=== PATIENT | female | born 1955 | race Caucasian/White ===

== ENCOUNTER → 2017-01-01 | Outpatient (CLI) | payer BC ==
[~2017-01-01] MED LIST: BENA20TA2 PO
== END | disposition home or self-care (01) ==
LOC: CFH 10:45
PROVIDERS: ATTEND Nurse Practitioner Family
DX: Z13.820 Encounter for screening for osteoporosis (principal); M85.88 Other specified disorders of bone density and structure, other site
CPT/HCPCS: 77080

== ENCOUNTER → 2018-04-09 | Outpatient (CLI) | payer BC ==
[~2018-04-09] MED LIST changes: -BENA20TA2 PO; +BENA20TA4 PO
== END | disposition home or self-care (01) ==
LOC: CFH 09:25
PROVIDERS: ATTEND Nurse Practitioner Family
DX: Z13.820 Encounter for screening for osteoporosis (principal); Z12.2 Encounter for screening for malignant neoplasm of respiratory organs; M81.0 Age-related osteoporosis without current pathological fracture; Z72.0 Tobacco use
CPT/HCPCS: 77080; G0297

== ENCOUNTER → 2019-06-03 | Outpatient (CLI) | payer BC ==
[~2019-06-03] MED LIST changes: -BENA20TA4 PO; +BENA20TA54 PO
== END | disposition home or self-care (01) ==
LOC: CFH 10:18
PROVIDERS: ATTEND Nurse Practitioner Family
DX: Z12.31 Encounter for screening mammogram for malignant neoplasm of breast (principal)
CPT/HCPCS: 77067